=== PATIENT | female | born 2000 | race Hispanic/Latino ===

== ENCOUNTER 2021-03-19 06:49 | Emergency (ER) | payer BC ==
[2021-03-19] MEDS ORDERED: predniSONE 20 MG TAB ONE (07:13)
[2021-03-19] MEDS ORDERED: Famotidine/PF 20 mg/2ml Vial ONE (07:14)
[2021-03-19] MEDS ORDERED: diphenhydrAMINE 50 MG/ML VIAL ONE (07:14)
== END 2021-03-19 08:21 | disposition home or self-care (01) ==
LOC: CSHERS 06:49
DX: T78.40XA Allergy, unspecified, initial encounter (principal)
CPT/HCPCS: 96374; 96375; J1200; J7512; S0028